=== PATIENT | female | born 1960 | race Caucasian/White ===

== ENCOUNTER → 2016-12-29 | Outpatient (CLI) | payer OTHER ==
[~2016-12-29] MED LIST: GADOBUTROL 10 ML VIAL IVP ONE
== END ==
LOC: FIMAGING 06:57
PROVIDERS: ATTEND Internal Medicine Gastroenterology
DX: Z03.89 Encounter for observation for other suspected diseases and conditions ruled out (principal); K76.0 Fatty (change of) liver, not elsewhere classified; K57.30 Diverticulosis of large intestine without perforation or abscess without bleeding
CPT/HCPCS: A9585

== ENCOUNTER → 2017-04-29 | Outpatient (CLI) | payer OTHER | LOC: FIMAGING 09:46 | PROVIDERS: ATTEND Obstetrics & Gynecology Gynecology | DX: Z12.31 Encounter for screening mammogram for malignant neoplasm of breast (principal) | CPT/HCPCS: G0202 ==

== ENCOUNTER 2017-09-03 08:28 | Emergency (ER) | payer OTHER ==
[2017-09-03 08:50] VITALS: RESP 16
--- NOTE | 2017-09-03 09:41 | EDPHY ---
H & P Time Seen by Provider: 09/03/17 08:31 HPI/ROS: HPI Fall down stairs, shoulder and knee pain. 57-year-old female by ambulance. She was at work. She has chronic knee pain. She reports that as she was going down some stairs her right knee buckled. The right knee had been bothering her more this morning. She fell down 3-4 stairs. She complains of pain to the left shoulder, left hand, right knee and right hip. She did not hit her head. There was no loss of consciousness. She denies any neck pain or back pain. No loss of sensation or weakness in her extremities. No other complaint. ROS: Constitutional: No fever, no chills. No weakness. Eyes: No discharge. No changes in vision. ENT: No sore throat. No nasal congestion or rhinorrhea. Respiratory: No cough. No shortness of breath. Cardiac: No chest pain, no palpitations. Gastrointestinal: No abdominal pain, no vomiting, no diarrhea. Genitourinary: No hematuria. No dysuria or increased frequency with urination. Musculoskeletal: No back pain. No neck pain. As above. Skin: No rashes. Neurological: No headache. No focal weakness or altered sensation. Past medical history: Chronic pain from arthritis in both knees, IBS, hypertension, pancreatitis. Social history: Nonsmoker. No alcohol. Currently here by herself. Physical Exam: General Appearance: Alert, no distress, mildly anxious. This patient is responding to questions appropriately and in full sentences. This patient appears well-hydrated and well-nourished. Head: Normocephalic atraumatic. Face: Facial bones are stable on palpation. Eyes: Pupils equal and round and reactive to light, no pallor or injection. No lid erythema or edema. ENT, Mouth: Mucous membranes moist. Dentition is intact. No malocclusion of the jaw. No tongue lacerations or abrasions. Pharynx is clear. The bilateral nasal canals are clear. No septal hematoma. Respiratory: There are no retractions, lungs are clear to auscultation with good air movement bilaterally. Chest wall is stable to AP and lateral palpation. Cardiovascular: Regular rate and rhythm. No murmur. Gastrointestinal: Abdomen is soft and nontender, no masses, bowel sounds normal. Neurological: Motor sensory function is intact. Cranial nerves are normal. Cerebellar function intact. Skin: Warm and dry, no rashes. No lacerations, abrasions or contusions. Musculoskeletal: Neck is supple and nontender. The trachea is midline. No midline cervical, thoracic, lumbar or sacral tenderness on palpation. No flank tenderness on palpation. Left upper extremity exam: She has a superficial abrasion over the dorsal aspect mid metacarpals of the left hand. She has some mild pain on axial compression of her digits involving the 3rd and 4th metacarpals. No bony deformity or step-off noted. No tenderness on palpation and axial compression of the wrist, forearm elbow. She describes having some pain on the lateral aspect of the left shoulder area. The glenohumeral joint ranges without significant pain or impingement. No tenderness on palpation over the left clavicle. No significant tenderness on palpation over the left AC joint. The left upper extremity is neurovascularly intact. Right lower extremity exam: No significant effusion of the right knee when compared to the left knee. Right knee joint is stable to valgus and varus stress testing as well as anterior and posterior drawer testing. Tenderness on palpation of the right mid patella. The right hip ranges without significant pain or impingement. She does have some tenderness on palpation involving the lateral posterior aspect of the right hip. No bony deformity or crepitus noted on palpation of this area. The right lower extremity is neurovascularly intact. Extremities are symmetrical, full range of motion except noted. All joints in the bilateral upper and bilateral lower extremities range without pain or impingement except noted. No tenderness on palpation of the long bones in the bilateral upper and bilateral lower extremities except noted. Psychiatric: No agitation. No depression. Database: EKG: Imaging: Left hand x-ray series: Negative for fracture, subluxation, dislocation. Interpreted by me. Left shoulder x-ray series: Negative for fracture, subluxation, dislocation. Interpreted by me. Right knee x-ray series: Probable vertical fracture of patella, no subluxation , no dislocation. Interpreted by me and reviewed with staff radiologist Dr. Rainey. Right hip x-ray series: Negative for fracture, subluxation, dislocation. Interpreted by me. Procedures: Emergency department course: Vital signs reviewed. She was sent for above x-rays after my evaluation. 9:50 a.m., patient re-evaluated. Her is present in the room. Results of x-rays discussed with her and her . She is able to ambulate under her own power. I discussed ibuprofen dosing with her. She feels comfortable going home at this time. Her right knee was placed in a brace/knee immobilizer. She will be provided crutches as needed for ambulation. She will follow up with her orthopedic coder Dr. Delacruz in [place]. I feel she is safe for discharge. Follow-up and return to emergency department precautions reviewed. All of her questions were answered. She was discharged in good condition with her . Differential Diagnosis: The differential diagnosis on this patient includes but is not limited to mechanical fall, right hip contusion, sprain of right knee, left shoulder contusion, left hand sprain. Fracture, dislocation, traumatic brain injury, traumatic spinal injury unlikely. This represents a partial list of diagnoses considered. These considerations are based on history, physical exam, past history, reassessment and diagnostic testing. Smoking Status: Never smoked Constitutional: Initial Vital Signs Temperature (C) 36.7 C 09/03/17 08:47 Heart Rate 93 09/03/17 08:47 Respiratory Rate 16 09/03/17 08:47 Blood Pressure 131/96 H 09/03/17 08:47 O2 Sat (%) 95 09/03/17 08:47 O2 Delivery Mode Room Air Allergies/Adverse Reactions: azithromycin Allergy (Verified 09/03/17 08:50) Home Medications: Medication Instructions Recorded Aspirin 81mg (*) 09/03/17 Lisinopril 09/03/17 Prozac 20 MG (*) 09/03/17 Verapamil 09/03/17 Medical Decision Making - Diagnostics Imaging Results: Imaging Impressions Hand X-Ray 09/03/17 08:35 Impression: Nothing acute identified. 2. Left Hand, Three Views History: Pain post trauma. Fall down stairs. Findings: No fracture or dislocation is identified. A metal ring surrounds the proximal phalanx of the fourth digit. There is a small chronic degenerative ossicle adjacent to the base of the first metacarpal. 3. Left Knee , 5 views, including a sunrise view History: Pain post trauma. Fall down stairs. Findings: There is a nondisplaced vertically oriented fracture coursing through the mid patella eccentric to the right of midline. There is a small amount of fluid in the suprapatellar bursa. There is soft tissue swelling anterior to the intact proximal anterior tibial apophysis. There is severe osteoarthritis of the knee joint greatest involving the medial joint compartment and the patellofemoral joint. There is mild, likely degenerative lateral subluxation of the tibia beneath the femur. There are marginal joint osteophytes. Overall mineralization is normal. No dislocation is identified. Impression: 1. Nondisplaced vertically oriented patellar fracture. 2. Severe osteoarthritis. Hip X-Ray 09/03/17 08:35 Impression: No acute abnormality seen about the pelvis with attention right hip. Knee X-Ray 09/03/17 08:35 Impression: Nothing acute identified. 2. Left Hand, Three Views History: Pain post trauma. Fall down stairs. Findings: No fracture or dislocation is identified. A metal ring surrounds the proximal phalanx of the fourth digit. There is a small chronic degenerative ossicle adjacent to the base of the first metacarpal. 3. Left Knee , 5 views, including a sunrise view History: Pain post trauma. Fall down stairs. Findings: There is a nondisplaced vertically oriented fracture coursing through the mid patella eccentric to the right of midline. There is a small amount of fluid in the suprapatellar bursa. There is soft tissue swelling anterior to the intact proximal anterior tibial apophysis. There is severe osteoarthritis of the knee joint greatest involving the medial joint compartment and the patellofemoral joint. There is mild, likely degenerative lateral subluxation of the tibia beneath the femur. There are marginal joint osteophytes. Overall mineralization is normal. No dislocation is identified. Impression: 1. Nondisplaced vertically oriented patellar fracture. 2. Severe osteoarthritis. Shoulder X-Ray 09/03/17 08:36 Impression: Nothing acute identified. 2. Left Hand, Three Views History: Pain post trauma. Fall down stairs. Findings: No fracture or dislocation is identified. A metal ring surrounds the proximal phalanx of the fourth digit. There is a small chronic degenerative ossicle adjacent to the base of the first metacarpal. 3. Left Knee , 5 views, including a sunrise view History: Pain post trauma. Fall down stairs. Findings: There is a nondisplaced vertically oriented fracture coursing through the mid patella eccentric to the right of midline. There is a small amount of fluid in the suprapatellar bursa. There is soft tissue swelling anterior to the intact proximal anterior tibial apophysis. There is severe osteoarthritis of the knee joint greatest involving the medial joint compartment and the patellofemoral joint. There is mild, likely degenerative lateral subluxation of the tibia beneath the femur. There are marginal joint osteophytes. Overall mineralization is normal. No dislocation is identified. Impression: 1. Nondisplaced vertically oriented patellar fracture. 2. Severe osteoarthritis. Departure - Departure Disposition: Home, Routine, Self-Care Clinical Impression: Contusion of left shoulder, Contusion of right hip, Fall down stairs, Right patella fracture Condition: Good Instructions: Shoulder Sprain (ED), Hip Contusion (ED), Patellar Fracture (ED) Additional Instructions: Read and follow provided instructions. Follow-up with your orthopedic coder, Dr. Delacruz, in [place] in 2-3 days for re-evaluation as discussed. Ibuprofen dosin mg every 6 hours with meals for the next 3 days only. Take only as needed for pain Return to the emergency department for worsening pain, difficulty walking or other serious concerns. Referrals: JUNIOR DELACRUZ [Non Staff Provider (MD)] - As per Instructions
[2017-09-03 10:28] VITALS: BP 143/88; PULSE 74; TEMP 98.2; O2SAT 94
== END 2017-09-03 10:28 | disposition home or self-care (01) ==
LOC: EDUNIT#
DX: S82.001A Unspecified fracture of right patella, initial encounter for closed fracture (principal); S40.012A Contusion of left shoulder, initial encounter; S70.01XA Contusion of right hip, initial encounter; I10 Essential (primary) hypertension; Z79.82 Long term (current) use of aspirin; W10.8XXA Fall (on) (from) other stairs and steps, initial encounter; Y92.69 Other specified industrial and construction area as the place of occurrence of the external cause
CPT/HCPCS: L1830

== ENCOUNTER → 2019-01-25 | Outpatient (CLI) | payer OTHER | LOC: FIMAGING 11:49 | PROVIDERS: ATTEND Orthopaedic Surgery | DX: M17.11 Unilateral primary osteoarthritis, right knee (principal) ==

== ENCOUNTER 2019-02-15 09:02 | Observation (INO) | payer OTHER ==
--- NOTE | 2019-02-15 06:02 | PDHPUP ---
History & Physical Update H&P update statement: This history and physical update is based on an assessment of the patient which was completed after admission or registration (within 24 hours), but prior to the surgery/procedure. H&P update: H&P reviewed & patient examined, no change in patient's condition since H&P completed
[~2019-02-15 09:02] MED LIST changes: -GADOBUTROL 10 ML VIAL IVP ONE; +LIDOCAINE 2% 100 MG/5 ML SYR ONE; +ONDANSETRON 4 MG/2 ML VIAL ONE; +PROPOFOL/EMULSION 500 MG/50 ML BOTTLE IV ONE; +ROPIVACAINE 0.2% 80 MG, EPINEPHrine 0.2 MG, KETOROLAC TROMETHAMINE 30 MG in SYRINGE 0 ML IU ONE; +TRANEXAMIC ACID 3,000 MG in NS (SYRINGE) 50 ML IRR ONE; +TRANEXAMIC ACID 3,000 MG/50 ML BAG IRR ONE; +fentaNYL 100 MCG/2 ML INJ ONE
[2019-02-15] MEDS ORDERED: ACETAMINOPHEN 325 MG TAB PO ONE (09:10)
[2019-02-15] MEDS ORDERED: FAMOTIDINE 20 MG TAB PO ONE (09:10)
[2019-02-15] MEDS ORDERED: DEXAMETHASONE 4 MG/ML VIAL IVP ONE (09:10)
[2019-02-15] MEDS ORDERED: ceFAZolin 2 GM/DEXTROSE 100 ML IV ONE (09:10)
[2019-02-15] MEDS ORDERED: LR 1,000 ML IV ONE (09:34)
[2019-02-15] MEDS ORDERED: MIDAZOLAM 2 MG/2 ML VIAL ONE (10:58)
--- NOTE | 2019-02-15 10:59 | PDANEPAE ---
ANE History of Present Illness right knee djd, here for R TKA ANE Past Medical History - Cardiovascular History Hx Hypertension: Yes Hx Arrhythmias: No Hx Chest Pain: No Hx Coronary Artery / Peripheral Vascular Disease: No Hx CHF / Valvular Disease: No Hx Palpitations: No Cardiovascular History Comment: high chol. pcp monitors bp medications - Pulmonary History Hx COPD: No Hx Asthma/Reactive Airway Disease: Yes Hx Recent Upper Respiratory Infection: No Hx Oxygen in Use at Home: No Hx Sleep Apnea: No Sleep Apnea Screening Result - Last Documented: Positive Pulmonary History Comment: wilfred triggers. hx of sports induced asthma when running - Neurologic History Hx Cerebrovascular Accident: No Hx Seizures: No Hx Dementia: No - Endocrine History Hx Diabetes: No Endocrine History Comment: elevated TSH, pcp is monitoring will redraw prior to surgery or after - Renal History Hx Renal Disorders: No - Liver History Hx Hepatic Disorders: No Hepatic History Comment: hx of pancreatitis a couple years ago- unknown cause - Neurological & Psychiatric Hx Hx Neurological and Psychiatric Disorders: Yes Neurological / Psychiatric History Comment: OCD. anxiety. occ uses xanax when she is on narcotics to help her not be anxious from feeling too high with narcotics - Cancer History Hx Cancer: No - Congenital Disorder History Hx Congenital Disorders: No - GI History Hx Gastrointestinal Disorders: Yes Gastrointestinal History Comment: hx of IBS in 's. GERD - Other Health History Other Health History: wears glasses - Chronic Pain History Chronic Pain: Yes (right knee, low back) - Surgical History Prior Surgeries: 1985 knee scope. another knee scope. breast reduction. rylie. ovarian cyst removed ANE Review of Systems Review of Systems: - Exercise capacity METS (RN): 4 METS ANE Patient History - Allergies Allergies/Adverse Reactions: azithromycin Allergy (Verified 01/23/19 11:45) hives on face and lips latex Allergy (Verified 01/23/19 13:34) Itching - Home Medications Home Medications: Aspirin [Aspirin 81mg (*)] 81 mg PO HS 09/03/17 [Last Taken 02/13/19] Lisinopril [Zestril 10 mg (*)] 10 mg PO HS 09/03/17 [Last Taken Unknown] Verapamil ER [Calan SR/ER 120MG (*)] 120 mg PO DAILY 09/03/17 [Last Taken Unknown] Cholecalciferol Vit D3 [Vitamin D3 (*)] 1,000 units PO DAILY 01/23/19 [Last Taken 2 Weeks Ago ~02/01/19] FLUoxetine [Prozac 20 MG (*)] 40 mg PO DAILY 01/23/19 [Last Taken Unknown] Naproxen Sodium [Aleve 220 MG (*)] 220 mg PO BID PRN 01/23/19 [Last Taken 2 Weeks Ago ~02/01/19] Omeprazole 20 mg PO DAILY 01/23/19 [Last Taken Unknown] Vitamin B Complex [Vitamin B Complex (OTC)] 1 each PO DAILY 01/23/19 [Last Taken 2 Weeks Ago ~02/01/19] - NPO status NPO Since - Liquids (Date): 02/15/19 NPO Since - Liquids (Time): 07:00 NPO Since - Solids (Date): 02/14/19 NPO Since - Solids (Time): 19:00 - Smoking Hx Smoking Status: Never smoked - Family Anes Hx Family Hx Anesthesia Complications: none ANE Labs/Vital Signs - Vital Signs Blood Pressure: 148/99 Heart Rate: 80 Respiratory Rate: 16 O2 Sat (%): 96 Height: 163.83 cm Weight: 104.326 kg ANE Physical Exam - Airway Neck exam: FROM, short neck Mallampati Score: Class 3 Mouth exam: normal dental/mouth exam - Pulmonary Pulmonary: no respiratory distress, no rales or rhonchi - Cardiovascular Cardiovascular: regular rate and rhythym, no murmur, rub, or gallop - ASA Status ASA Status: III ANE Anesthesia Plan Anesthesia Plan: GA with mask, spinal Regional Anesthesia: single shot NB Total IV Anesthesia: Yes
[2019-02-15] MEDS ORDERED: MIDAZOLAM 2 MG/2 ML VIAL IVP ONE (11:04)
[2019-02-15] MEDS ORDERED: TEMAZEPAM 15 MG CAP PO PRN (11:34)
[2019-02-15] MEDS ORDERED: ONDANSETRON DISINTEGRATING 4 MG TAB PO PRN (11:34)
[2019-02-15] MEDS ORDERED: BISACODYL 10 MG SUPP PR PRN (11:34)
[2019-02-15] MEDS ORDERED: LACTULOSE 20 GM/30 ML UDCUP PO PRN (11:34)
[2019-02-15] MEDS ORDERED: oxyCODONE IR 5 MG TAB PO PRN (11:34)
[2019-02-15] MEDS ORDERED: diphenhydrAMINE 25 MG CAP PO PRN (11:34)
[2019-02-15] MEDS ORDERED: DIPHENOXYLATE/ATROPINE LOMOTIL 1 TAB PO PRN (11:34)
[2019-02-15] MEDS ORDERED: MAGNESIUM HYDROXIDE 30 ML UDCUP PO PRN (11:34)
[2019-02-15] MEDS ORDERED: METOCLOPRAMIDE 10 MG/2 ML VIAL IVP PRN (11:34)
[2019-02-15] MEDS ORDERED: PROMETHAZINE HCL 25 MG SUPPR PR PRN (11:34)
[2019-02-15] MEDS ORDERED: ONDANSETRON 4 MG/2 ML VIAL IVP PRN (11:34)
[2019-02-15] MEDS ORDERED: PROMETHAZINE HCL 25 MG/ML INJ IVP PRN (11:34)
[2019-02-15] MEDS ORDERED: POLYETHYLENE GLYCOL 3350 17 GM PKT PO PRN (11:34)
[2019-02-15] MEDS ORDERED: PROPOFOL/EMULSION 500 MG/50 ML BOTTLE IV ONE (11:42)
[2019-02-15] MEDS ORDERED: LR 1,000 ML IV SCH (12:00)
[2019-02-15] MEDS ORDERED: DIAZEPAM 10 MG/2 ML SYR IVP PRN (12:23)
[2019-02-15] MEDS ORDERED: NALOXONE HCL 0.4 MG/ML INJ IVP PRN (12:23)
[2019-02-15] MEDS ORDERED: fentaNYL 100 MCG/2 ML INJ IVP PRN (12:23)
[2019-02-15] MEDS ORDERED: HYDROmorphONE/DILAUDID 1 MG/ML INJ IVP PRN (12:23)
[2019-02-15] MEDS ORDERED: MEPERIDINE 25 MG/0.5 ML AMP IVP PRN (12:23)
--- NOTE | 2019-02-15 12:48 | POSTOPPROG ---
Post Op Note Date of Operation: 02/15/19 Surgeon: Jared Liao Ethnoarchaeologist: Yaima ROBERTSON Anesthesiologist: Dr. Rina Espinal Anesthesia: Spinal, Other (Specify) (adductor canal block) Pre-op Diagnosis: right knee OA Post-op Diagnosis: same Indication: right knee pain Procedure: RTKA, robot assisted Findings: sever OA of right knee Inf/Abcess present in the surg proc area at time of surgery?: No EBL: 50-100
--- NOTE | 2019-02-15 13:02 | POSTANESTH ---
Post Anesthetic Evaluation Cardiovascular Status: Normal, Stable Respiratory Status: Normal, Stable Level of Consciousness/Mental Status: Can Participate in Eval, Alert and Oriented Pain Control: Adequate, Prn Tx Ordered Nausea/Vomiting Control: Adequate, Prn Tx Ordered Complications Possibly Related to Anesthesia: None Noted
--- NOTE | 2019-02-15 15:52 | SOAPPROG ---
SOAP Progress Note Assessment/Plan: Assessment: s/p right TKA, ASAD assist - procedure earlier today with Dr. Liao Doing well, became a lightheaded after PT Plan: Begin d/c planning - likely home tomorrow, will have support from her and other family members Continue VTE ppx- aspirin 81 mg BID x 4 weeks, MIREYA hose x 2 weeks, SCDs in hospital Continue oral pain medication oxycodone, Tylenol, Celebrex; in the past oxycodone caused anxiety, will change pain medication if needed Continue PT efforts WBAT, ROM as tolerated but limit flexion to 90 degrees until 5-7 days post-op. Follow up with Yaima Puri PA-C, on 03/09/19 at 8:45 am Subjective: Patient states she is doing well, right knee pain is minimal at this time secondary to the spinal anesthesia and nerve block. She got a bit dizzy and lightheaded after PT, BP was 114/75. She reports having anxiety in the past after taking oxycodone, if this is not working to relieve her pain she would like to try a different pain medication. States hydrocodone/Vicodin have worked in the past. She denies SOB, CP, fever, chills. Objective: Vital Signs Temp Pulse Resp BP Pulse Ox 36.8 C 64 14 114/75 96 02/15/19 15:26 02/15/19 15:26 02/15/19 15:26 02/15/19 15:26 02/15/19 15:26 02/14/19 02/15/19 02/16/19 05:59 05:59 05:59 Intake Total 1150 Output Total 30 Balance 1120 Patient resting comfortably in bed, no acute distress. She has a cool damp washcloth on her head because she became dizzy with PT. RLE: Knee wound dressings clean, dry and intact. Lower leg compartments are soft and nontender. MIREYA hoses and SCDs are in place. Patient is tolerating the [place]. Negative Homans sign bilaterally. Patient can actively DF and PF her right foot and great toe against resistance. Grossly NVI distally. ICD10 Worksheet Patient Problems: Problems Problem Status Onset Unilateral primary osteoarthritis, right knee Acute
[2019-02-15] MEDS: ceFAZolin 2 GM/DEXTROSE 100 ML IV SCH (17:35)
[2019-02-15] MEDS: ACETAMINOPHEN 325 MG TAB PO SCH (17:35)
[2019-02-15] MEDS: ASPIRIN 81 MG CHEWABLE TAB PO SCH (20:05)
[2019-02-15] MEDS: FAMOTIDINE 20 MG TAB PO SCH (20:05)
[2019-02-15] MEDS: SENNOSIDES/DOCUSATE SODIUM TAB PO SCH (20:05)
[2019-02-15] MEDS: CYCLOBENZAPRINE 10 MG TAB PO PRN (20:08)
[2019-02-15] MEDS ORDERED: LISINOPRIL 10 MG TAB PO SCH (21:00)
[2019-02-16] MEDS: ACETAMINOPHEN 325 MG TAB PO SCH ×2 (00:59→05:29)
[2019-02-16] MEDS: ceFAZolin 2 GM/DEXTROSE 100 ML IV SCH (01:02)
--- NOTE | 2019-02-16 08:12 | SOAPPROG ---
SOAP Progress Note Assessment/Plan: Assessment: s/p right TKA, ASAD assist with Dr. Liao - POD 1 Doing better than expected, tolerated oxycodone Anemia - expected initially post-op, asymptomatic, continue to monitor Plan: Begin d/c planning - likely home today, will have support from her and daughter Continue VTE ppx- aspirin 81 mg BID x 4 weeks, MIREYA hose x 2 weeks Continue oral pain medication oxycodone, Tylenol, Celebrex, flexeril Continue PT efforts WBAT, ROM as tolerated but limit flexion to 90 degrees until 5-7 days post-op. Needs clearance from PT prior to d/c Follow up with Yaima Puri PA-C, on 03/09/19 at 8:45 am Subjective: Patient states she is doing well, her knee is becoming a bit more sore since the pain medication is starting to wear off. She feels well enough to go home today. Patient denies SOB, CP, fever, chills, nausea, numbness, tingling. Objective: Vital Signs Temp Pulse Resp BP Pulse Ox 36.6 C 67 14 149/77 H 98 02/16/19 07:24 02/16/19 07:24 02/16/19 07:24 02/16/19 07:24 02/16/19 07:24 Laboratory Results 02/16/19 04:45 02/15/19 02/16/19 02/17/19 05:59 05:59 05:59 Intake Total 4855 Output Total 4030 Balance 825 Patient resting comfortably in bed, no acute distress. RLE: Knee wound dressings clean, dry and intact. Lower leg compartments are soft and nontender. Negative Homans sign bilaterally. Patient can actively DF and PF her right foot and great toe against resistance. Grossly NVI distally. ICD10 Worksheet Patient Problems: Problems Problem Status Onset Unilateral primary osteoarthritis, right knee Acute
--- NOTE | 2019-02-16 08:17 | PDDCSUM ---
Discharge Summary Discharge Summary: ADMISSION DIAGNOSIS: Right knee severe degenerative arthritis DISCHARGE DIAGNOSIS: Right knee severe degenerative arthritis OPERATION PERFORMED: February 15, 2019, Right total knee arthroplasty, Nico robot assisted POSTOPERATIVE COMPLICATIONS: None CONDITION ON DISCHARGE: Improved HPI: The patient is a 59 year old female who has end-stage arthritis of her right knee. Clinical and radiographic features are consistent with this. Patient has failed attempts at conservative management, therefore, recommended operative right total knee replacement. DESCRIPTION OF HOSPITAL COURSE: The patient was admitted to the hospital on the morning of surgery and underwent a right total knee arthroplasty, Nico robot assisted. Postoperatively, patient was treated with multimodal DVT prophylaxis, including aspirin 81 mg BID, SCDs and MIREYA hose. Patient was seen by PT and made good progress with ambulation and stairs. On the first post-operative day the patients H&H was 11.9/36.4. Patient was able to void spontaneously. Patient is doing better than expected. At the time of discharge, patient was afebrile, wound was clean and dry. Patient is walking with a walker. DISPOSITION: The patient is discharged home with the support of her and daughter and will have outpatient PT in the next 1-2 weeks. Patient may progress to full weightbearing on the right lower extremity as tolerated. MIREYA stockings for 2 weeks during the day time. Aspirin 81 mg BID for 4 weeks. Patient has prescriptions for Flexeril, Celebrex, oxycodone for pain control. The patient will be seen by Dr. Bo office in approximately 3 weeks. If there are any problems, patient is to call Dr. Bo office.
[2019-02-16] MEDS ORDERED: FLUoxetine 20 MG CAP PO SCH (09:00)
[2019-02-16] MEDS ORDERED: VERAPAMIL ER 120 MG TAB PO SCH (09:00)
[2019-02-16] MEDS ORDERED: PANTOPRAZOLE SODIUM 40 MG TAB PO SCH (09:00)
[2019-02-16] MEDS: FAMOTIDINE 20 MG TAB PO SCH (09:28)
[2019-02-16] MEDS: ASPIRIN 81 MG CHEWABLE TAB PO SCH (09:29)
[2019-02-16] MEDS: SENNOSIDES/DOCUSATE SODIUM TAB PO SCH (09:29)
[2019-02-16 09:33] VITALS: BP 108/69
[2019-02-16] MEDS: CYCLOBENZAPRINE 10 MG TAB PO PRN (09:53)
--- NOTE | 2019-02-16 11:20 | ASMTLACE ---
MAYELINE Length of stay for Answers: 1 day current admission Acuity / Level of Answers: No Care: Did the patient have an inpatient admission? Comorbidities - select Answers: Opioid dependence all that apply / Chronic pain Other Notes: HTN # of Emergency department Answers: 0 visits in the last 6 months Social determinants Answers: Mental health diagnosis (anxiety, depression, pers onality disorders, etc.) Score: 9 Date Signed: 02/16/2019 11:19 AM Electronically Signed By:BETHANIE Sosa
--- NOTE | 2019-02-18 12:46 | GOP ---
[f rep st] OPERATIVE REPORT DATE OF OPERATION: 02/15/2019 SURGEON: Jackeline Liao MD PRODUCT DIRECTOR: Lizzie Puri P.A.-C. ANESTHESIA: Spinal. PREOPERATIVE DIAGNOSIS: Right knee osteoarthritis. POSTOPERATIVE DIAGNOSIS: Right knee osteoarthritis. PROCEDURE PERFORMED: Right total knee arthroplasty with computer navigation, robotic assist. FINDINGS: ESTIMATED BLOOD LOSS: 30 cc. INDICATIONS: The patient is a 59-year-old female with severe and progressive pain and deformity of the right knee unresponsive to conservative care. The risks and benefits of surgical intervention were explained in detail. DESCRIPTION OF PROCEDURE: The patient was brought to the operative room and placed on the table in the supine position. Spinal anesthesia was induced without difficulty. A pneumatic tourniquet was applied about the right proximal thigh, and the leg was prepped and draped in a sterile fashion. The leg quinonez was applied. After exsanguination by elevation the tourniquet was inflated to 250 mmHg. Incision was made anterior medial from the tibial tuberosity to a point 2 cm proximal to the superior pole of the patella. Medial parapatellar arthrotomy was carried out from the superior pole of the patella and posteriorly in line with the fibers of the Type II VMO. The medial collateral ligament was elevated and the infrapatellar fat pad was resected. The patella was everted and the articular surface was excised. A 35 mm patellar button was placed. Attention was turned first to the distal aspect of the femur. After exposure of the femur, 2 half pins were placed for fixation of the femoral array. In a similar fashion, 2 pins were placed anteromedial on the tibia for fixation of the tibial array. External land marking and registration of the hip center were performed without difficulty. Internal femoral and tibial registration were carried out without difficulty and the femoral and tibial checkpoints were placed and verified for accuracy. Attention was turned to the femur. The foot print for the size 3 femoral component was cut with the saw using the [employer] robotic system and verified for accuracy against the CT based plan. In a similar fashion, the saw was used to cut the footprint for the size 4 tibial component using the [employer] system and verified for accuracy against the CT based plan. The tibial articular surface was excised without difficulty, followed by the intercondylar box cut. The knee was extended and the remnants of the medial and lateral meniscus were excised. The posterior capsule was injected with ropivacaine, epinephrine and Toradol. A size 4 tibial tray was positioned. Trial reduction was then carried out. There was excellent range of motion, alignment, and stability using the 4 x 9 mm polyethylene. All trials were then removed. The joint was thoroughly irrigated and carefully dried. The pressfit components was implanted. The permanent 4 x 9 mm polyethylene was placed without difficulty. The tourniquet was deflated and all bleeders were coagulated. The wound was thoroughly irrigated and closed using interrupted sutures of 2-0 Vicryl for the joint capsule. The subcu was closed with 3-0 Vicryl and the skin with 4-0 Monocryl. Dermabond and Steri-Strips were applied followed by a compressive dressing. The patient was then moved from the operating room to the recovery room in good condition, having tolerated the procedure well. /[id number]/MODL MTDD
== END 2019-02-16 11:18 | disposition home or self-care (01) ==
LOC: F3E 09:02 → F3N 14:09
PROVIDERS: ADMIT Orthopaedic Surgery; ATTEND Orthopaedic Surgery
DX: M17.11 Unilateral primary osteoarthritis, right knee (principal); E78.5 Hyperlipidemia, unspecified; I10 Essential (primary) hypertension; K21.9 Gastro-esophageal reflux disease without esophagitis; F41.9 Anxiety disorder, unspecified
CPT/HCPCS: 27447; 73560; 97110; 97116; 97161; 97530; G0378; J0171; J0690; J1100; J1885; J2001; J2250; J2405; J2704; J2795; J3010